=== PATIENT | male | born 1995 | race Caucasian/White ===

== ENCOUNTER 2022-03-23 07:15 | Emergency (ER) | payer OTHER ==
[~2022-03-23] VITALS: Ht 172.7 cm; Wt 82.3 kg
[2022-03-23 13:00] VITALS: BP 120/74
[2022-03-23 13:28] LABS: GC DNA AMPLIFICATION NEGATIVE (NEGATIVE)
== END 2022-03-23 13:24 | disposition home or self-care (01) ==
LOC: M ED 07:15
DX: N43.3 Hydrocele, unspecified (principal)